=== PATIENT | female | born 2000 | race Caucasian/White ===

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

== ENCOUNTER → 2023-06-27 15:14 | Outpatient (BNVA) | payer MEDICAID, SELFPAY | PROVIDERS: PCP Nurse Practitioner Family; Visit Provider Nurse Practitioner Family | DX: J34.89 Other specified disorders of nose and nasal sinuses (principal); E55.9 Vitamin D deficiency, unspecified; D64.9 Anemia, unspecified; Z13.6 Encounter for screening for cardiovascular disorders; Z79.899 Other long term (current) drug therapy; N91.2 Amenorrhea, unspecified | CPT/HCPCS: 80053; 80061; 81003; 81025; 82306; 82728; 83036; 83550; 84443; 85025 ==

== ENCOUNTER → 2024-03-11 12:19 | Outpatient (BNVA) | payer BC, SELFPAY | PROVIDERS: PCP Nurse Practitioner Family; Visit Provider Nurse Practitioner Family | DX: J02.9 Acute pharyngitis, unspecified (principal) | CPT/HCPCS: 87880 ==